=== PATIENT | female | born 1955 | race Caucasian/White ===

== ENCOUNTER 2016-05-17 16:19 | Emergency (ER) | payer OTHER ==
[~2016-05-17 16:19] MED LIST: ACZONE TP; ADVAIR 250-501 EACH IH; ALBUTEROL2.5 MG/0.5 NEB; ATORVASTATIN CA10 MG PO; BACITRACIN15 GM TP; BUDESONIDE0.5 MG/2 M NEB; CALTRATE 600+D PO; CENTRUM SILVER PO; CINNAMON PLUS1 EACH PO; CLOBEX59 M1; CLOBEX59 ML TOP; FENOFIBRIC ACI135 MG PO; FINACEA PLUS K1 EACH; FINACEA PLUS K1 EACH TP; FISH OIL 1,2001 EAC1 PO; FLONASE 0.05% N16 G1; HYDROCODON-ACE1 EAC3 PO; HYDROCODONE-APA1 T50 PO; HYDROCODONE/ACET PO; KEFLEX; LEVAQUIN750 MG PO; LOMOTIL TABLET1 TAB; LOMOTIL TABLET1 TAB PO; LOPID600 MG PO; METHOCARBAMOL500 MG; METHOCARBAMOL500 MG PO; NASONEX17 GM; OMEPRAZOLE20 M2 PO; PANTOPRAZOLE SO40 MG; PANTOPRAZOLE SO40 MG PO; PATANASE30.5 GM NS; PREDNISONE PO; PREDNISONE10 MG PO; PREDNISONE10 MG/DOSE; PREVACID 24HR15 MG PO; PROAIR HFA8.5 GM IH; PROAIR HFA8.5 GM INH; SPIRIVA18 MCG INH; SYMBICORT INH; THEO-DUR300 MG PO; TOPAMAX PO; TRILIPIX135 MG PO; VAGIFEM10 MCG VG; VITAMIN B650 MG PO; VITAMIN E400 UNI1 PO; VITAMIN E400 UNI4 PO; XARELTO10 MG PO; [UNRECOGNIZED DRUG - OTHER]; [UNRECOGNIZED DRUG - OTHER] TP
== END 2016-05-17 16:35 | disposition home or self-care (01) ==
LOC: CED 16:19
DX: S61.411A Laceration without foreign body of right hand, initial encounter (principal); J44.9 Chronic obstructive pulmonary disease, unspecified; Z88.6 Allergy status to analgesic agent; Z88.2 Allergy status to sulfonamides; Z79.899 Other long term (current) drug therapy; Z87.891 Personal history of nicotine dependence; X58.XXXA Exposure to other specified factors, initial encounter; Y92.098 Other place in other non-institutional residence as the place of occurrence of the external cause
CPT/HCPCS: 99283

== ENCOUNTER → 2016-10-05 | Day surgery (SDC) | payer OTHER ==
--- NOTE | ~2016-10-05 | OR ---
Unit #: [id number] #: [id number] Patient: AMAURY STRAUSS [id number] [address] [address] [id number] O MR#: [id number] NAME: AMAURY STRAUSS ROOM: Date of Procedure: 10/05/2016 Admission Date: 10/05/2016 Surgeon: Elijah Espinal M.D. : 1955 Attending Physician: Elijah Espinal M.D. Primary Care Physician: Colin Andrade M.D. OPERATIVE REPORT PRIMARY CARE PHYSICIAN Colin Andrade M.D. PREOPERATIVE DIAGNOSES History of dyspepsia and retrosternal ascending heartburn as well as personal history of colon polyps. PROCEDURES PERFORMED Upper gastrointestinal endoscopy and biopsy as well as colonoscopy with polypectomy. POSTOPERATIVE DIAGNOSES For upper endoscopy: 1. The patient had distal esophageal Schatzki ring. The latter was felt to be wide open, not requiring dilation. 2. Distal grade 2 erosive esophagitis. 3. Prepyloric antral moderate gastritis. 4. Mild focal patchy erosive duodenitis involving the duodenal bulb. 5. Rest of the examination up to third part of duodenum was normal. 6. A biopsy was obtained from the antrum for CLOtest. For colonoscopy: 1. The patient had a sessile polyp at the mid ascending colon about a 1 cm in size. It was removed using snare cautery polypectomy. 2. Second sessile polyp about a 1 cm size in the rectum, removed using snare cautery polypectomy. 3. Mild sigmoid and descending colon diverticulosis. 4. Rest of the examination up to cecum and terminal ileum was normal. The quality of the prep was excellent. RECOMMENDATIONS 1. Pantoprazole or lansoprazole 40 mg p.o. daily. 2. Followup results of polyp histology. 3. Repeat colonoscopy in 5 years. 4. Follow up in the office in 3 months' time. SEDATION USED MAC. DESCRIPTION OF PROCEDURE Following detailed explanation of potential risks and complications of an upper endoscopy and a colonoscopy, namely perforation, bleeding, and complications related to sedation, the patient was brought to GI lab and Unit #: [id number] #: [id number] Patient: AMAURY STRAUSS laid in the left lateral decubitus position. Lubricated tip of the Olympus video upper endoscope was passed through the bite block into the proximal esophagus under direct vision. The entire esophageal mucosa was examined. The patient was noted to have grade 2 distal erosive esophagitis along with distal esophageal Schatzki ring. The latter was felt to be wide open, not requiring dilation. The scope was then advanced into the gastric cavity and the latter was insufflated. Mucosa of the fundus, body, and antrum examined and moderate prepyloric antral erythema and erosions noted indicating antral gastritis. Pylorus was intubated with visualization of the duodenal bulb. The latter was noted to have focal patchy erosive duodenitis. Second and third part of duodenum were normal. Upon withdrawal and retroflexion, incisura, cardia, and greater curve examined and biopsy obtained from the antrum for CLOtest. The scope was then withdrawn in the distal esophagus. The entire esophageal mucosa was examined all the way up to pharynx, no additional findings noted. The examination table was then turned by 180 degrees and the patient positioned for a colonoscopy. A digital rectal examination was performed, which was normal. Lubricated tip of the Olympus video colonoscope was inserted through the anus and advanced under direct vision. The scope was advanced and passed up to sigmoid into descending colon. Multiple small diverticula were noted in this area. The scope tip was then navigated all the way up to cecum with visualization of the ileocecal valve and the appendiceal orifice. Preparation was excellent with good visualization and photodocumentation was obtained. Last several inches of the terminal ileum also visualized after intubation of the ileocecal valve and appeared normal. Successive segments of the colonic mucosa were examined upon withdrawal. A single sessile polyp was noted in the mid ascending colon. The latter was removed using snare cautery polypectomy. It was retrieved and sent for histology. A second polyp about a 1 cm in size seen in the rectum was also removed using snare polypectomy. It was retrieved and sent for histology. No additional polyps were seen. Other than the scant diverticula seen in the left side, no other abnormalities noted. The scope was then withdrawn. The patient returned to the recovery area. She tolerated the procedure without any postprocedure complications. Dictated by... Chary Davis TD: 10/05/2016 17:18 JOB #: [id number] CC: Colin Andrade M.D. OPERATIVE REPORT Page 1 of 1 X Elijah Espinal MD PROCEDURE OPERATIVE NOTE
== END | disposition home or self-care (01) ==
LOC: COPS 13:00
DX: Z12.11 Encounter for screening for malignant neoplasm of colon (principal); D12.2 Benign neoplasm of ascending colon; D12.8 Benign neoplasm of rectum; K57.30 Diverticulosis of large intestine without perforation or abscess without bleeding; K22.2 Esophageal obstruction; K29.70 Gastritis, unspecified, without bleeding; K20.8 Other esophagitis; K29.80 Duodenitis without bleeding; J43.9 Emphysema, unspecified; K21.9 Gastro-esophageal reflux disease without esophagitis; I48.91 Unspecified atrial fibrillation; Z87.01 Personal history of pneumonia (recurrent); Z86.010 Personal history of colon polyps; Z87.19 Personal history of other diseases of the digestive system; Z87.891 Personal history of nicotine dependence; Z86.711 Personal history of pulmonary embolism; Z79.899 Other long term (current) drug therapy; Z88.5 Allergy status to narcotic agent; Z88.8 Allergy status to other drugs, medicaments and biological substances; Z98.51 Tubal ligation status; Z90.49 Acquired absence of other specified parts of digestive tract; Z98.890 Other specified postprocedural states
CPT/HCPCS: 87077; 88305; J2250